=== PATIENT | male | born 1990 | race African-American/Black ===

== ENCOUNTER 2016-11-24 04:55 | Emergency (ER) | payer BC, OTHER ==
[~2016-11-24] VITALS: Ht 182.9 cm; Wt 95.0 kg
[2016-11-24 05:01] VITALS: Ht 182.9 cm; Wt 95.0 kg
[2016-11-24] MEDS ORDERED: DEXAMETHASONE 10 MG/ML 1 ML INJ IM STA (06:17)
[2016-11-24] MEDS ORDERED: IPRATROPIUM (NEB) 0.5 MG/2.5 ML AMP NEB STA (06:17)
[2016-11-24] MEDS ORDERED: ALBUTEROL 0.083% (NEB) 2.5 MG/3 ML AMP NEB STA (06:17)
[2016-11-24] MEDS ORDERED: D-ME473S2 PO (06:20)
[2016-11-24] MEDS ORDERED: LORA10CA PO (06:20)
[2016-11-24] MEDS ORDERED: ALBU8.5H3 INH (06:20)
--- NOTE | 2016-11-24 06:26 | ERD ---
ER Documentation Chief Complaint Date/Time DATE: 11/24/16 TIME: 06:23 Chief Complaint shortness of breath x 2 days HPI This is a 26-year-old male presenting to the emergency department complaining of nasal and sinus congestion and wheezing for the past 2 days. Patient denies any history of asthma however he states that in the past he has had symptoms of asthma when he gets sick. Patient denies any fevers, chest pain, sore throat, ear pain. Patient has not tried any medications. ROS All systems reviewed and are negative except as per history of present illness. Medications Home Meds Active Scripts Dextromethorphan Hb-Promethazine Hcl* (Promethazine DM* Syrup) 473 Ml Syrup, 5 ML PO Q6 Y for COUGH, #100 ML Prov:TREVON LEVY PA-C 11/24/16 Loratadine* (Claritin*) 10 Mg Capsule, 10 MG PO DAILY, #30 CAP Prov:TREVON LEVY PA-C 11/24/16 Albuterol Sulfate* (Proair HFA*) 8.5 Gm Hfa.aer.ad, 2 PUFF INH Q4H Y for WHEEZING AND SOB, #1 INHALER Prov:TREVON LEVY PA-C 11/24/16 Allergies Allergies: Coded Allergies: No Known Drug Allergies (Verified Allergy, Unknown, 11/24/16) Uncoded Allergies: APPLES (Allergy, Mild, 11/24/16) PMhx/Soc Medical and Surgical Hx: pt denies Medical Hx History of Surgery: Yes (torn meniscus R leg, R hip sx: sports related) Anesthesia Reaction: No Hx Neurological Disorder: No Hx Respiratory Disorders: No Hx Cardiac Disorders: No Hx Psychiatric Problems: No Hx Miscellaneous Medical Probl: No Hx Alcohol Use: No Hx Substance Use: Yes (marijuana 2x/ day) Hx Tobacco Use: No (waterpipe 2-3x/ mo) Smoking Status: Current some day smoker Physical Exam Vitals Vital Signs Date Time Temp Pulse Resp B/P Pulse Ox O2 Delivery O2 Flow Rate FiO2 11/24/16 05:01 97.9 60 20 131/78 100 Physical Exam GENERAL: WD/WN, in no apparent distress, non-toxic appearing HENT: NC/AT, bilateral TM has good cone of light, oropharynx is clear, nasal congestion EYES: Conjunctiva normal NECK: Supple PULM: Inspiratory and expiratory wheezing. No rales, crackles, or rhonchi heard. No tripod position, normal labored breathing, no stridor, no evidence of using accessory muscles. CV: Good capillary refill, good S1 and S2, no murmurs appreciated GI: Non-distended, no guarding BACK: No masses. EXT: No clubbing, cyanosis, or edema. NEURO: Moves on all fours SKIN: intact, no cyanosis. PSYCH: Normal mood Results 24 hrs Current Medications Medications (Trade) Dose Ordered Sig/Jazzy Route PRN Reason Start Time Stop Time Status Last Admin Dose Admin Albuterol (Proventil 0.083% (Neb)) 5 mg ONCE STAT NEB 11/24/16 06:17 11/24/16 06:18 DC Ipratropium [place] (Atrovent 0.02% (Neb)) 0.5 mg ONCE STAT NEB 11/24/16 06:17 11/24/16 06:18 DC Dexamethasone (Decadron) 10 mg ONCE STAT IM 11/24/16 06:17 11/24/16 06:18 DC Procedures/MDM This is a 26-year-old male without a history of asthma patient presents to the ER with symptoms most consistent with bronchitis with wheezing, My clinical suspicion is low suspicion for pneumonia, bacterial sinusitis, status asthmaticus, inhaled foreign body, or other life threatening pulmonary emergencies due to physical examination. There was no evidence of respiratory distress, patient was saturating well at 100% O2 sat throughout the whole encounter. RT was consulted in the ED, breathing treatment of albuterol 5 mg and Atrovent 0.5 was administered. Patient's symptoms and wheezing improved. Hemodynamically stable. Prescription for albuterol, Promethazine DM, Claritin was given, discussed to have a close follow-up with a primary care physician, discussed to return to the ED if not improving as expected or if condition worsens. Patient understood and agreed with this plan. Departure Diagnosis: Primary Impression: URI (upper respiratory infection) URI type: unspecified viral URI Qualified Code: J06.9 - Viral upper respiratory tract infection Additional Impression: Wheezing Condition: Stable Patient Instructions: Bronchitis With Wheezing (Adult) Referrals: [facility] YOU HAVE RECEIVED A MEDICAL SCREENING EXAM AND THE RESULTS INDICATE THAT YOU DO NOT HAVE A CONDITION THAT REQUIRES URGENT TREATMENT IN THE EMERGENCY DEPARTMENT. FURTHER EVALUATION AND TREATMENT OF YOUR CONDITION CAN WAIT UNTIL YOU ARE SEEN IN YOUR DOCTORS OFFICE WITHIN THE NEXT 1-2 DAYS. IT IS YOUR RESPONSIBILITY TO MAKE AN APPOINTMENT FOR FOLOW-UP CARE. IF YOU HAVE A PRIMARY DOCTOR --you should call your primary doctor and schedule an appointment IF YOU DO NOT HAVE A PRIMARY DOCTOR YOU CAN CALL OUR PHYSICIAN REFERRAL HOTLINE AT IF YOU CAN NOT AFFORD TO SEE A PHYSICIAN YOU CAN CHOSE FROM THE FOLLOWING [facility] [address] [address] [address] [facility] [facility] [address] [facility] [facility] [address] [facility] [facility] [address] [facility]. [facility] [address] Additional Instructions: FOLLOW UP WITH YOUR PRIMARY CARE PHYSICIAN TOMORROW.Return to this facility if you are not improving as expected. Take all medicines as directed. Return to this facility if you are not improving as expected. TREVON LEVY PA-C Nov 24, 2016 06:26
[2016-11-24 07:39] VITALS: BP 118/76; PULSE 71; RESP 18; TEMP 98.4
== END 2016-11-24 07:39 | disposition home or self-care (01) ==
LOC: FTE 04:55
DX: J06.9 Acute upper respiratory infection, unspecified (principal); R06.2 Wheezing; F17.210 Nicotine dependence, cigarettes, uncomplicated
CPT/HCPCS: 94664; 96372; 99284; J1100